=== PATIENT | male | born 1985 | race Caucasian/White ===

== ENCOUNTER 2022-07-19 14:58 | Emergency (ER) | payer OTHER, MEDICAID, SELFPAY ==
[2022-07-19 15:13] VITALS: BP 160/102; PULSE 62; RESP 16; TEMP 36.4; O2SAT 99; BMI 27.2
--- NOTE | 2022-07-19 16:00 | ED.RECABL ---
HPI - Recheck/Abnormal Lab/Rx <DAKSHA Ramirez - Last Filed: 07/19/22 16:11> General Chief Complaint: Recheck/Abnormal Lab/Rx Stated Complaint: Meds Check Time Seen by Provider: 07/19/22 15:54 History of Present Illness HPI narrative: 37-year-old male, recently released from incarceration, presents to the emergency department with a request for a medication refill as a bridge until his appointment with his mental health specialist on August 10. Patient denies any pain or SI or HI at this time. Patient is being treated by mental health specialist for PTSD, ADHD, anxiety and depression. Related Data Previous Rx's Medication Instructions Recorded clonidine HCl 0.2 mg tablet 0.4 mg PO BEDTIME 30 days #60 tabs 07/19/22 lamotrigine 200 mg tablet 200 mg PO DAILY #30 tabs 07/19/22 (Lamictal) trazodone 50 mg tablet 50 mg PO DAILY #30 tabs 07/19/22 venlafaxine 150 mg 150 mg PO DAILY #30 caps 07/19/22 capsule,extended release 24 hr (Effexor XR) Allergies Allergy/AdvReac Type Severity Reaction Status Date / Time No Known Drug Allergies Allergy Verified 07/19/22 16:02 Review of Systems <DAKSHA Ramirez - Last Filed: 07/19/22 16:11> Review of Systems Narrative: Narrative: See HPI. GENERAL: Denies chills, fatigue, fever, sweats. HEENT: Denies sinus pain, ear pain, sore throat, difficulty swallowing, dizziness. RESPIRATORY: Denies dyspnea, cough, wheezing, sputum. CARDIOVASCULAR: Denies chest pain, palpitations, edema. GASTROINTESTINAL: Denies nausea, vomiting, abdominal pain, diarrhea, constipation. : Denies dysuria, frequency, incontinence, hematuria, urinary retention, flank pain. MSK: Denies weakness, joint pain, or bony pain. SKIN: Denies rash, skin lesions, or pruritis. NEUROLOGIC: Denies weakness, dizziness, headache, numbness, confusion. PSYCHIATRIC: No concerning psychosocial issues. Exam <DAKSHA Ramirez - Last Filed: 07/19/22 16:11> Narrative Exam Narrative: Exam Narrative: GENERAL: This is a well-nourished, well-developed patient, in no acute distress. HEAD: Atraumatic. Normocephalic. EYES: Pupils equal round and reactive. No scleral icterus, injection or drainage. CARDIOVASCULAR: Regular rate and rhythm without murmurs, peripheral pulses intact, cap refill <2 sec. RESPIRATORY: Breath sounds equal and clear bilaterally. No wheezes, rales, or rhonchi. No cough. No increased respiratory effort. No accessory muscle use. GASTROINTESTINAL: Abdomen soft, non-tender, nondistended without guarding or rebound. No suprapubic pain. MSK: Moves all extremities. Normal range of motion, no clubbing or edema. Neurovascularly intact. NEURO: A&O x 3. SKIN: Warm, dry, no rashes or lesions noted. Initial Vital Signs Initial Vital Signs: Vital Signs Temperature 97.5 F L 07/19/22 15:13 Pulse Rate 62 07/19/22 15:13 Respiratory Rate 16 07/19/22 15:13 Blood Pressure 160/102 H 07/19/22 15:13 Pulse Oximetry 99 07/19/22 15:13 Oxygen Delivery Method 07/19/22 15:13 Reviewed <Sammie Cohen DO - Last Filed: 07/21/22 21:35> Initial Vital Signs Initial Vital Signs: Vital Signs Temperature 97.5 F L 07/19/22 15:13 Pulse Rate 62 07/19/22 15:13 Respiratory Rate 16 07/19/22 15:13 Blood Pressure 160/102 H 07/19/22 15:13 Pulse Oximetry 99 07/19/22 15:13 Oxygen Delivery Method 07/19/22 15:13 Course <DAKSHA Ramirez - Last Filed: 07/19/22 16:11> Vital Signs Vital signs: Vital Signs - 8 hr 07/19/22 15:13 Temperature 97.5 F L Pulse Rate 62 Respiratory Rate 16 Blood Pressure 160/102 H Pulse Oximetry 99 Oxygen Delivery Method Room Air <Sammie Cohen DO - Last Filed: 07/21/22 21:35> Vital Signs Vital signs: Vital Signs - 8 hr 07/19/22 15:13 Temperature 97.5 F L Pulse Rate 62 Respiratory Rate 16 Blood Pressure 160/102 H Pulse Oximetry 99 Oxygen Delivery Method Room Air MDM - Recheck/Abnormal Lab/Rx <DAKSHA Ramirez - Last Filed: 07/19/22 16:11> Differential Diagnosis Differential diagnosis: Likely encounter for medication refill MDM Narrative Medical decision making narrative: 37-year-old male presents to the emergency department for a medication refill as a bridge before his appointment on August 10. Assessment was unremarkable and patient is not exhibiting any symptoms of mental health crisis, SI or HI. Medications will be refilled to pharmacy of choice. Discussed plan of care and return precautions with patient, who is agreeable with course of action. Discharge Plan Departure Patient Disposition: Home Clinical Impression: Encounter for medication refill Activity Restrictions/Additional Instructions: *You have been seen in the emergency department for a medication refill. I have given you a 30 day supply of this medication. Please make sure that you follow-up with your mental health specialist as previously scheduled. For any worsening symptoms such as feelings of hurting yourself or others, please return to the emergency department. *What to do: *Please continue to take your regular medications as directed. [X] New medication prescriptions sent to your pharmacy: [[facility]] [ ] New medication written as a paper prescription [ ] No new medications given *Please follow up with your primary care provider in 2-3 days, call for an appointment. Let them know you were seen in the Emergency Department and that we ask that you be seen in follow up. We will electronically transmit a record of today's note if your PCP is in our system *If you do not have a primary care provider please contact the [facility] Resource line at [phone]. They will ask some questions about your medical history and help get you set up with a doctor in the community. ? Return to ER if you should have any new, worsening or concerning symptoms, such as worsening pain, severe headache, confusion, chest pain, difficulty breathing, fever greater than 101 F, shaking chills, persistent vomiting to the point that you cannot drink fluids, or other new or worsening symptoms. Prescriptions: New lamotrigine [Lamictal] 200 mg tablet 200 mg PO DAILY Qty: 30 0RF venlafaxine [Effexor XR] 150 mg capsule,extended release 24hr 150 mg PO DAILY Qty: 30 0RF clonidine HCl 0.2 mg tablet 0.4 mg PO BEDTIME 30 Days Qty: 60 0RF trazodone 50 mg tablet 50 mg PO DAILY Qty: 30 0RF Referrals: Miscellaneous,Doctor, [Primary Care Provider] - Visit Report Forms: Patient Portal/API <Sammie Cohen DO - Last Filed: 07/21/22 21:35> Cosign ED Attending Shanekaature Attestation: I was immediately available in the department for consultation. Documentation has been reviewed. I agree with assessment and plan.
== END 2022-07-19 16:19 | disposition home or self-care (01) ==
PROVIDERS: Emergency Provider Registered Nurse
DX: Z76.0 Encounter for issue of repeat prescription (principal)
CPT/HCPCS: 99281; 99282